=== PATIENT | male | born 1965 | race Caucasian/White ===

== ENCOUNTER 2021-02-19 12:04 | Observation (INO) | payer SELFPAY ==
[2021-02-19] VITALS (10 sets, daily range): BP systolic 88–116; BP diastolic 55–82; PULSE 78–97; RESP 14–24; TEMP 36.2–37.3; O2SAT 93–99; BMI 30.4
[2021-02-19 12:20] LABS: Add Manual Diff / Slide Review NO; Basophils Absolute Auto 100 /uL (0-100); Basophils Percent Auto 0.7 % (0-2); Eosinophils Absolute Auto 100 /uL (0-450); Eosinophils Percent Auto 0.4 % (2-4); Hematocrit 43.6 % (41-53); Hemoglobin 14.8 g/dL (13.5-17.5); Lymphocytes Absolute Auto 1500 /uL (1100-4500); Lymphocytes Percent Auto 10.7 % (25-40); Mean Corpuscular Hemoglobin 31.1 PG (26-34); Mean Corpuscular Volume 91.4 fL (80-100); Monocytes Absolute Auto 1500 /uL (0-900); Neutrophils Absolute Auto 10600 /uL (1500-7000); Neutrophils Percent Auto 77.2 % (50-75); Platelet Count 329 X10^3/uL (150-400); Red Blood Cell Count 4.77 X10^6/uL (4.5-5.9); Red Cell Distribution Width 13.5 % (11.6-14.8); White Blood Cell Count 13.7 X10^3/uL (4.5-11.0)
--- NOTE | 2021-02-19 12:30 | PC.NURSE ---
NS IVF infusing from medics. 300ml infused in field.
[2021-02-19 12:32] LABS: Alanine Aminotransferase 34 IU/L (<50); Albumin 4.8 g/dL (3.5-5.0); Albumin Globulin Ratio 1.1 (1.0-2.8); Alkaline Phosphatase 137 U/L (38-126); Aspartate Aminotransferase 32 IU/L (17-59); BUN Creatinine Ratio 9.5 (6-22); Bilirubin Total 1.2 mg/dL (0.2-1.3); Blood Urea Nitrogen 47 mg/dL (9-20); Calcium 9.9 mg/dL (8.4-10.2); Carbon Dioxide 19 mmol/L (22-32); Chloride 97 mmol/L (98-107); Estimated Glomerular Filt Rate 12.2 mL/min (>60); Ethanol (ETOH) < 10 mg/dL; Globulin 4.2 g/dL (1.7-4.1); Glucose 119 mg/dL (70-100); HEMOLYSIS < 15 (0-50); Lipase 78 U/L (23-300); Potassium 3.7 mmol/L (3.4-5.1); Sodium 135 mmol/L (137-145)
--- NOTE | 2021-02-19 13:16 | ED.GENADULT ---
HPI - General Adult General Chief complaint: Toxicology Problem Stated complaint: ETOH withdrawal Time Seen by Provider: 02/19/21 12:15 Source: patient Mode of arrival: EMS Limitations: no limitations History of Present Illness HPI narrative: Patient is a 55-year-old male here for evaluation of dizziness, fatigue, not feeling well. Patient does have a significant alcohol history. States he quit drinking 3 days ago. He was at his job today picking up some tools in order to take to a new job when he started to not feel very well. It was the coworkers at this job that called EMS. When EMS arrived they found that the patient was ?orthostatic ?patient states that he did have some vomiting a couple days ago and also had diarrhea couple days ago but nothing currently. He does state that he has had a decreased oral intake over the past couple days. Has had some shaking. Has had some anxiety but he feels like that has improved. States that he has never withdrawn from alcohol before but does state that he has had ?seizures ?in the past for an unknown reason. He is not on any anti seizure medications. He has some generalized abdominal tenderness. A couple days ago had some black colored stools but that has resolved. Has been taking Pepto-Bismol because of abdominal tenderness. No vomiting. No blood in his vomitus. No fevers. Related Data Home Medications Medication Instructions Recorded Confirmed atorvastatin 40 mg PO DAILY 02/19/21 02/19/21 lisinopril 10 mg PO DAILY 02/19/21 02/19/21 Allergies Allergy/AdvReac Type Severity Reaction Status Date / Time No Known Drug Allergies Allergy Verified 02/19/21 12:29 Review of Systems Constitutional Constitutional: Reports fatigue, Denies fever(s) and Reports malaise ENT Ears, Nose, Mouth, and Throat: Reports dizziness and Reports disequilibrium Cardiovascular Cardiovascular: Denies chest pain and Denies dyspnea Respiratory Respiratory: Denies dyspnea Gastrointestinal Gastrointestinal: Reports abdominal pain, Reports melena (A couple days ago), Reports diarrhea (A couple days ago), Denies nausea and Reports vomiting (A couple days ago) Genitourinary Genitourinary: Denies dysuria Genitourinary: Denies dysuria Musculoskeletal Musculoskeletal: Denies arthralgias and Denies myalgias Integumentary/Breasts Skin/Breast: Denies rash Neurologic Neurologic: Reports dizziness and Reports disequilibrium Psychiatric Psychiatric: Reports anxiety Endocrine Endocrine: Reports fatigue Hematologic/Lymphatic On Anticoagulants: No Allergic/Immunologic Allergic/Immunologic: Reports system reviewed and no additional complaints, except as documented Patient History Medical History Hyperlipidemia Hypertension Social History household members: none Smoking Status: Current every day smoker alcohol intake: current Smoking Status: Current every day smoker Alcohol type: beer Substance Use Type: marijuana Exam Initial Vital Signs Initial Vital Signs: Vital Signs Pulse Rate 97 H 02/19/21 12:15 Respiratory Rate 24 02/19/21 12:15 Pulse Oximetry 93 02/19/21 12:15 Const General: cooperative and disheveled Limitations: mental status not altered HENMT Head: normal to inspection and normocephalic Resp Effort & Inspection: normal respiratory effort Auscultation: clear to auscultation bilaterally Cardio Rate: regular rate Rhythm: regular rhythm GI Inspection: non-distended Palpation: soft Rectal Exam: visual inspection normal and heme negative stool Skin Lesions: no lesions Rashes: no rashes Neuro General: patient alert and patient awake Cognition: normal cognition Speech: speech normal Extrem General: capillary refill normal Psych Appearance: grossly normal and well kempt Scores GCS [place] coma scale eye opening: Spontaneous K[place] coma scale verbal response: Orientated K[place] coma scale motor response: Obey commands [place] coma scale total score: 15 Course Orders Ordered: ED Orders 02/19/21 12:00 Complete Blood Count AUTO DIFF Stat Comprehensive Metabolic Panel Stat Ethanol (ETOH) Stat Lipase Stat 02/19/21 17:40 Urinalysis and Microscopic Stat Acetaminophen (Acetaminophen 325 Mg Tablet) 650 mg PO Q6HR PRN PRN Reason: Fever/Mild Pain (1-3) Heparin Sodium (Porcine) (Heparin 5,000 Unit/Ml Vial) 5,000 unit SUBCUT BID JEAN Sodium Chloride (Normal Saline 0.9%) 1,000 mls @ 150 mls/hr IV CONT JEAN Last Admin: 02/19/21 18:13 Dose: 150 mls/hr Documented by: FACUNDO Naloxone HCl (Naloxone 0.4 Mg/Ml Vial) 0.2 mg IV Q2MIN PRN PRN Reason: Opiate Reversal Ondansetron HCl (Ondansetron 4 Mg/2 Ml Inj) 4 mg IV Q4HR PRN PRN Reason: Nausea And Vomiting Discontinued Medications Sodium Chloride (Normal Saline 0.9%) 1,000 mls @ 1,000 mls/hr IV BOLUS ONE Stop: 02/19/21 13:14 Last Admin: 02/19/21 12:29 Dose: Not Given Documented by: GALE Sodium Chloride (Normal Saline 0.9%) 1,000 mls @ 1,000 mls/hr IV BOLUS ONE Stop: 02/19/21 16:27 Last Admin: 02/19/21 16:57 Dose: 1,000 mls/hr Documented by: FACUNDO Vital Signs Vital signs: Vital Signs - 8 hr 02/19/21 12:15 02/19/21 12:16 02/19/21 12:28 Temperature 99.1 F Pulse Rate 97 H Pulse Rate [Orthostatic Lying] 82 Pulse Rate [Orthostatic Sitting] 87 Pulse Rate [Orthostatic Standing] 95 H Respiratory Rate 24 Blood Pressure Blood Pressure [Orthostatic Lying] 109/63 Blood Pressure [Orthostatic Sitting] 111/75 Blood Pressure [Orthostatic Standing] 88/55 L Pulse Oximetry 93 02/19/21 12:30 02/19/21 13:00 02/19/21 13:30 Temperature Pulse Rate 78 78 79 Pulse Rate [Orthostatic Lying] Pulse Rate [Orthostatic Sitting] Pulse Rate [Orthostatic Standing] Respiratory Rate 18 19 21 Blood Pressure 90/60 100/58 L 107/63 Blood Pressure [Orthostatic Lying] Blood Pressure [Orthostatic Sitting] Blood Pressure [Orthostatic Standing] Pulse Oximetry 93 97 97 Medical Decision Making Lab Data Lab results reviewed: Yes I reviewed the patient's lab results. Result diagrams: 02/19/21 12:00 02/19/21 12:00 Labs: Lab Results 02/19/21 02/19/21 Range/Units 12:00 12:00 WBC 13.7 H (4.5-11.0) X10^3/uL RBC 4.77 (4.5-5.9) X10^6/uL Hgb 14.8 (13.5-17.5) g/dL Hct 43.6 (41-53) % MCV 91.4 (80-100) fL MCH 31.1 (26-34) PG MCHC 34.0 (30-36) % RDW 13.5 (11.6-14.8) % Plt Count 329 (150-400) X10^3/uL Neut % (Auto) 77.2 H (50-75) % Lymph % (Auto) 10.7 L (25-40) % [place] % (Auto) 11.0 (3-14) % Eos % (Auto) 0.4 L (2-4) % Baso % (Auto) 0.7 (0-2) % Neut # (Auto) 56606 H (7188-4823) /uL Lymph # (Auto) 1500 (8119-3615) /uL [place] # (Auto) 1500 H (0-900) /uL Eos # (Auto) 100 (0-450) /uL Baso # (Auto) 100 (0-100) /uL Sodium 135 L (137-145) mmol/L Potassium 3.7 (3.4-5.1) mmol/L Chloride 97 L (98-107) mmol/L Carbon Dioxide 19 L (22-32) mmol/L BUN 47 H (9-20) mg/dL Creatinine 4.94 H (0.66-1.25) mg/dL Estimated GFR 12.2 L (>60) mL/min BUN/Creatinine Ratio 9.5 (6-22) Glucose 119 H (70-100) mg/dL Calcium 9.9 (8.4-10.2) mg/dL Total Bilirubin 1.2 (0.2-1.3) mg/dL AST 32 (17-59) IU/L ALT 34 (<50) IU/L Alkaline Phosphatase 137 H (38-126) U/L Total Protein 9.0 H (6.3-8.2) g/dL Albumin 4.8 (3.5-5.0) g/dL Globulin 4.2 H (1.7-4.1) g/dL Albumin/Globulin Ratio 1.1 (1.0-2.8) Lipase 78 (23-300) U/L Ethyl Alcohol < 10 ( - 10) mg/dL MDM Narrative Medical decision making narrative: Patient is somewhat anxious but he states that he feels like his anxiety is better than what it was earlier. He does have a leukocytosis. He was orthostatic here in the ER. He also has a elevation in his creatinine. We have no prior to compare to. His potassium is unremarkable. There is no current indication for emergent dialysis. I do suspect that this is pre renal. He was given fluids. Discussed the case with with Internal Medicine who will admit for further evaluation treatment. Discussed the admission with the patient he expressed understanding and agreement as well. Discharge Plan Departure Patient Disposition: Home Clinical Impression: Acute kidney injury
--- NOTE | 2021-02-19 14:59 | PC.NURSE ---
Patient arrived to room 214 from ER, oriented to room and call light. Call light placed within reach, and discussed fall risk precautions. Patient agrees to call for assistance and not to get up alone. No COVID was sent from ER, placed on special droplet precautions per protocol until results received. Patient sitting up in bed, states he is hungry after not eating for 3 days.
--- NOTE | 2021-02-19 15:31 | DI.US.S_ITS ---
PROCEDURE: US RENAL COMPLETE INDICATIONS: RENAL FAILURE TECHNIQUE: Real-time scanning was performed of the kidneys and bladder, with image documentation. COMPARISON: None. FINDINGS: Kidneys: Kidneys are normal in size. Right kidney measures 11.1 cm long; left kidney measures 12.1 cm long. Right renal cortical thickness is 1.7 cm; left renal cortical thickness is 2.0 cm. Renal cortical echotexture is normal. No hydronephrosis or nephrolithiasis. No suspicious solid mass lesions. Bladder: Pre-void bladder volume is 469 mL. Post-void residual is 130 mL. Pre-void images demonstrate no intraluminal masses or stones. A right ureteral jet is present. No left ureteral jet is seen. Miscellaneous: No free pelvic fluid. IMPRESSION: 1. No hydronephrosis. 2. Moderate postvoid residual in the urinary bladder. Dictated by: Afshin Diop M.D. on 02/19/2021 at 18:21 Approved by: Afshin Diop M.D. on 02/19/2021 at 18:22
--- NOTE | 2021-02-19 16:14 | PM.HP.1 ---
History of Present Illness History of Present Illness Date Patient Seen: 02/19/21 Time Patient Seen: 15:00 Date of Onset of Symptoms: 02/17/21 Chief complaint: ETOH withdrawal Narrative: Patient is a 55-year-old male with history of hypertension, hyperlipidemia, alcohol dependency presents to the emergency department with 2 or 3 day history of feeling lightheaded, dizzy and weak associated with vomiting and diarrhea. Patient History Family & Social History Safety & Behavioral: Feels Safe in Current Yes Environment Been Physically Hurt or No Threatened By a Person Suicidal Ideation Description None Tobacco & Substance use: Smoking Status Current every day smoker Substance Use Type marijuana Meds Home Medications and Allergies Allergies Allergy/AdvReac Type Severity Reaction Status Date / Time No Known Drug Allergies Allergy Verified 02/19/21 12:29 Exam Vital Signs (past 8 hours): - 02/19/21 12:15 02/19/21 12:16 02/19/21 12:28 Temperature 99.1 F Pulse Rate 97 H Pulse Rate [Orthostatic Lying] 82 Pulse Rate [Orthostatic Sitting] 87 Pulse Rate [Orthostatic Standing] 95 H Respiratory Rate 24 Blood Pressure Blood Pressure [Orthostatic Lying] 109/63 Blood Pressure [Orthostatic Sitting] 111/75 Blood Pressure [Orthostatic Standing] 88/55 L Pulse Oximetry 93 02/19/21 12:30 02/19/21 13:00 02/19/21 13:30 Temperature Pulse Rate 78 78 79 Pulse Rate [Orthostatic Lying] Pulse Rate [Orthostatic Sitting] Pulse Rate [Orthostatic Standing] Respiratory Rate 18 19 21 Blood Pressure 90/60 100/58 L 107/63 Blood Pressure [Orthostatic Lying] Blood Pressure [Orthostatic Sitting] Blood Pressure [Orthostatic Standing] Pulse Oximetry 93 97 97 02/19/21 14:00 02/19/21 14:23 Temperature 97.1 F L Pulse Rate 78 85 Pulse Rate [Orthostatic Lying] Pulse Rate [Orthostatic Sitting] Pulse Rate [Orthostatic Standing] Respiratory Rate 20 16 Blood Pressure 106/60 116/82 Blood Pressure [Orthostatic Lying] Blood Pressure [Orthostatic Sitting] Blood Pressure [Orthostatic Standing] Pulse Oximetry 97 95 Objective Labs Result Diagrams: 02/19/21 12:00 02/19/21 12:00 Labs: Laboratory Results - last 24 hr 02/19/21 02/19/21 12:00 12:00 WBC 13.7 H RBC 4.77 Hgb 14.8 Hct 43.6 MCV 91.4 MCH 31.1 MCHC 34.0 RDW 13.5 Plt Count 329 Neut % (Auto) 77.2 H Lymph % (Auto) 10.7 L [place] % (Auto) 11.0 Eos % (Auto) 0.4 L Baso % (Auto) 0.7 Neut # (Auto) 86114 H Lymph # (Auto) 1500 [place] # (Auto) 1500 H Eos # (Auto) 100 Baso # (Auto) 100 Sodium 135 L Potassium 3.7 Chloride 97 L Carbon Dioxide 19 L BUN 47 H Creatinine 4.94 H Estimated GFR 12.2 L BUN/Creatinine Ratio 9.5 Glucose 119 H Calcium 9.9 Total Bilirubin 1.2 AST 32 ALT 34 Alkaline Phosphatase 137 H Total Protein 9.0 H Albumin 4.8 Globulin 4.2 H Albumin/Globulin Ratio 1.1 Lipase 78 Ethyl Alcohol < 10
--- NOTE | 2021-02-19 16:41 | PM.HP.1 ---
History of Present Illness History of Present Illness Date Patient Seen: 02/19/21 Time Patient Seen: 15:00 Date of Onset of Symptoms: 02/17/21 Chief complaint: ETOH withdrawal Narrative: Patient is a 55-year-old male with history of hypertension, hyperlipidemia, alcohol dependency, anxiety disorder who presented with complaints of lightheadedness, dizziness, weakness and near-syncope. He quit drinking 3 days ago. He started having vomiting and watery diarrhea the next day after quitting alcohol use. Today he was picking up his tools at work and became near syncopal and someone there called EMS. Patient was orthostatic in the ED with supine BP 109/63 and standing BP 88/55. He takes lisinopril for blood pressure control and atorvastatin for cholesterol. His laboratory values were concerning for acute renal failure with BUN 47, creatinine 4.94 EGFR 12.2. Patient is not aware of any past history of chronic kidney disease and no other lab values are available in our system. Patient denies coffee-ground emesis or melena with the diarrhea. Family history negative for kidney disease. Social history: Alcohol use and smoking Patient History Medical History (Updated 02/19/21 @ 17:02 by Toñito Arredondo MD) Hyperlipidemia Hypertension Family & Social History Safety & Behavioral: Feels Safe in Current Yes Environment Been Physically Hurt or No Threatened By a Person Suicidal Ideation Description None Tobacco & Substance use: Smoking Status Current every day smoker Substance Use Type marijuana Meds Home Medications and Allergies Allergies Allergy/AdvReac Type Severity Reaction Status Date / Time No Known Drug Allergies Allergy Verified 02/19/21 12:29 Review of Systems Review of Systems ROS: Yes All systems reviewed with the patient and are negative except as otherwise documented Exam Vital Signs (past 8 hours): - 02/19/21 12:15 02/19/21 12:16 02/19/21 12:28 Temperature 99.1 F Pulse Rate 97 H Pulse Rate [Orthostatic Lying] 82 Pulse Rate [Orthostatic Sitting] 87 Pulse Rate [Orthostatic Standing] 95 H Respiratory Rate 24 Blood Pressure Blood Pressure [Orthostatic Lying] 109/63 Blood Pressure [Orthostatic Sitting] 111/75 Blood Pressure [Orthostatic Standing] 88/55 L Pulse Oximetry 93 02/19/21 12:30 02/19/21 13:00 02/19/21 13:30 Temperature Pulse Rate 78 78 79 Pulse Rate [Orthostatic Lying] Pulse Rate [Orthostatic Sitting] Pulse Rate [Orthostatic Standing] Respiratory Rate 18 19 21 Blood Pressure 90/60 100/58 L 107/63 Blood Pressure [Orthostatic Lying] Blood Pressure [Orthostatic Sitting] Blood Pressure [Orthostatic Standing] Pulse Oximetry 93 97 97 02/19/21 14:00 02/19/21 14:23 Temperature 97.1 F L Pulse Rate 78 85 Pulse Rate [Orthostatic Lying] Pulse Rate [Orthostatic Sitting] Pulse Rate [Orthostatic Standing] Respiratory Rate 20 16 Blood Pressure 106/60 116/82 Blood Pressure [Orthostatic Lying] Blood Pressure [Orthostatic Sitting] Blood Pressure [Orthostatic Standing] Pulse Oximetry 97 95 Narrative Exam Narrative: General: Alert and cooperative male HEENT: Anicteric, pupils equal and reactive, EOMI Neck: No lymphadenopathy Lungs: Clear to auscultation Heart: Normal S1 and S2, regular rate and rhythm, no murmur Abdomen: Soft, nontender, no HSM Extremities no edema Neurological: A and O x3, affect normal, speech normal, not tremulous, no focal weakness Objective Labs Result Diagrams: 02/19/21 12:00 02/19/21 12:00 Labs: Laboratory Results - last 24 hr 02/19/21 02/19/21 12:00 12:00 WBC 13.7 H RBC 4.77 Hgb 14.8 Hct 43.6 MCV 91.4 MCH 31.1 MCHC 34.0 RDW 13.5 Plt Count 329 Neut % (Auto) 77.2 H Lymph % (Auto) 10.7 L [place] % (Auto) 11.0 Eos % (Auto) 0.4 L Baso % (Auto) 0.7 Neut # (Auto) 47041 H Lymph # (Auto) 1500 [place] # (Auto) 1500 H Eos # (Auto) 100 Baso # (Auto) 100 Sodium 135 L Potassium 3.7 Chloride 97 L Carbon Dioxide 19 L BUN 47 H Creatinine 4.94 H Estimated GFR 12.2 L BUN/Creatinine Ratio 9.5 Glucose 119 H Calcium 9.9 Total Bilirubin 1.2 AST 32 ALT 34 Alkaline Phosphatase 137 H Total Protein 9.0 H Albumin 4.8 Globulin 4.2 H Albumin/Globulin Ratio 1.1 Lipase 78 Ethyl Alcohol < 10 Assessment & Plan Assessment & Plan narrative: 1. Acute kidney injury -this is likely prerenal versus ATN secondary to vomiting and diarrhea associated with alcohol withdrawal -patient is orthostatic indicating volume depletion, serum potassium normal, he has non-anion gap acidosis associated with dehydration and renal failure -provide hydration: 2 L NS bolus then 150 cc/hour -hold lisinopril -renal ultrasound -check renal labs in a.m. 2. Acute alcohol withdrawal -patient's main withdrawal symptoms at this time seem to be vomiting and diarrhea, does not have past history of acute withdrawal -IV Zofran as needed -diet as tolerated 3. Hypertension and hyperlipidemia -hold lisinopril and atorvastatin Admit status: Obs DVT prophylaxis: Subcu heparin
[2021-02-19] MEDS: SODIUM CHLORIDE 0.9% 1,000 ML 1000 ML IV (16:57)
[2021-02-19 17:49] LABS: COVID19 - ADMIT (NP swab/PCR) Negative (Negative)
[2021-02-19] MEDS: SODIUM CHLORIDE 0.9% 1,000 ML 150 ML IV (18:13)
[2021-02-19 18:17] LABS: RBC Urine None Seen (0-5/HPF)
[2021-02-19 18:20] LABS: Appearance Urine UA SL CLOUDY; Bilirubin Urine UA 1+ (NEGATIVE); Color Urine UA YELLOW; Glucose Urine UA NEGATIVE (Negative); Ketones Urine UA TRACE (NEGATIVE); Leukocyte Esterase Urine UA 1+ (NEGATIVE); Nitrite Urine UA NEGATIVE (Negative); Occult Blood Urine UA NEGATIVE (Negative); Protein Urine UA 1+ (Negative); Specific Gravity Urine UA 1.025 (1.000-1.035); Urobilinogen Urine UA 0.2 E.U./dL (0.2)
[2021-02-19 18:30] LABS: Amorphous Sediment Urine 1+; Bacteria Urine Moderate (10-30); Granular Casts Urine 1-5/LPF; Hyaline Casts Urine 1-5/LPF; Ictotest Urine Negative (Negative); Squamous Epithelial Cell Urine 1-5 /HPF (0-5/HPF); WBC Urine 10-30/HPF (0-5/HPF)
[2021-02-19 18:31] LABS: Culture Indicated Urine Specimen Cultured; Mucus Urine 1+ (Negative)
[2021-02-19] MEDS: HEPARIN 5,000 UNIT/ML VIAL 5000 UNIT SUBCUT (21:27)
[2021-02-20] VITALS (8 sets, daily range): BP systolic 101–127; BP diastolic 47–72; PULSE 69–85; RESP 16; TEMP 36–37.3; O2SAT 96–97
[2021-02-20] MEDS: SODIUM CHLORIDE 0.9% 1,000 ML 150 ML IV (01:50)
[2021-02-20 05:31] LABS: BUN Creatinine Ratio 23.6 (6-22); Blood Urea Nitrogen 35 mg/dL (9-20); Calcium 8.5 mg/dL (8.4-10.2); Carbon Dioxide 20 mmol/L (22-32); Chloride 110 mmol/L (98-107); Glucose 101 mg/dL (70-100); HEMOLYSIS < 15 (0-50); Potassium 4.3 mmol/L (3.4-5.1); Sodium 138 mmol/L (137-145)
[2021-02-20 05:42] LABS: Add Manual Diff / Slide Review NO; Basophils Absolute Auto 100 /uL (0-100); Eosinophils Absolute Auto 100 /uL (0-450); Eosinophils Percent Auto 1.1 % (2-4); Hematocrit 37.4 % (41-53); Hemoglobin 12.7 g/dL (13.5-17.5); Lymphocytes Absolute Auto 1200 /uL (1100-4500); Lymphocytes Percent Auto 14.6 % (25-40); Mean Corpuscular Hemoglobin 31.4 PG (26-34); Mean Corpuscular Volume 92.3 fL (80-100); Monocytes Absolute Auto 1100 /uL (0-900); Monocytes Percent Auto 13.3 % (3-14); Neutrophils Absolute Auto 5600 /uL (1500-7000); Platelet Count 235 X10^3/uL (150-400); Red Blood Cell Count 4.05 X10^6/uL (4.5-5.9); Red Cell Distribution Width 13.3 % (11.6-14.8)
[2021-02-20] MEDS: HEPARIN 5,000 UNIT/ML VIAL 5000 UNIT SUBCUT (09:08)
[2021-02-20] MEDS: CIPROFLOXACIN 250 MG TABLET 500 MG PO (11:25)
--- NOTE | 2021-02-20 12:02 | PC.NURSE ---
Patient given discharge instructions regarding medication, s/s of worsening condition and alcohol use and dependence. Pharmacy able to provide instructions regarding prescribed antibiotic. Patient verbalized understanding. Tele discontinued and IV removed, patient tolerated. Patient denies having items in [facility] safe, wallet retrieved from bedside table. Patient discharged via wheelchair with aide assist.
--- NOTE | 2021-02-20 13:12 | CM.SWNOTE ---
RECORDS CUSTODIAN Note Patient is a 55 yo male, resident of [place], admitted for symptoms of ETOH w/d and discharged this morning . Patient is currently self pay, patient given information about [employer] and provided robe care ppk per notes from admitting team Met w/patient before his DC, introduced RECORDS CUSTODIAN role. Patient eager to DC the hospital and states he has stable housing in [place], lives in an apt. Patient confirms he quit drinking 3 days ago and plans to remain sober upon DC. Patient has been getting drunk nightly w/about 6-7 large cans of beer. Patient admits to long standing h/o ETOH abuse, since age 14-13yo, last period of sobriety was sometime in my thirties. Patient states over and over that my drinking has never been a problem for me so I never quit. 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 Patient has never been , no children, and currently w/no medical insurance. Patient appears to lack insight into the severity of his addiction and the negative effect it has on his life. Patient denies needs from this RECORDS CUSTODIAN today and says when I want to stop I stop cold turkey Updated RN Milagros. Pao Garner, BRAYAN
--- NOTE | 2021-02-20 15:13 | PM.DS.1 ---
History of Present Illness History of Present Illness Chief complaint: ETOH withdrawal Narrative: Patient is a 55-year-old male with history of hypertension, hyperlipidemia, alcohol dependency, anxiety disorder who presented with complaints of lightheadedness, dizziness, weakness and near-syncope. He quit drinking 3 days ago. He started having vomiting and watery diarrhea the next day after quitting alcohol use. Today he was picking up his tools at work and became near syncopal and someone there called EMS. Patient was orthostatic in the ED with supine BP 109/63 and standing BP 88/55. He takes lisinopril for blood pressure control and atorvastatin for cholesterol. His laboratory values were concerning for acute renal failure with BUN 47, creatinine 4.94 EGFR 12.2. Patient is not aware of any past history of chronic kidney disease and no other lab values are available in our system. Patient denies coffee-ground emesis or melena with the diarrhea. Family history negative for kidney disease. Social history: Alcohol use and smoking Discharge Providers Provider Date of admission: 02/19/21 13:40 Discharge Date: 02/20/21 Consults: 02/19/21 18:30 Consult to Respiratory Therapy Evaluate & Treat Comment: Physician Instructions: Evaluate and treat Discharge provider: Toñito Arredondo MD Summary Hospital Course Discharge Diagnosis: 1. Acute kidney injury, prerenal 2. ETOH dependency with acute withdrawal 3. Urinary tract infection 4. Likely mild chronic urinary retention due to BPH Patient admitted with symptoms of acute severe dehydration. He had been vomiting and having diarrhea since quit drinking. He was orthostatic and his creatinine was 4.94. He was provided IV hydration with substantial improvement of presenting symptoms. His lisinopril was held. His creatinine came down to 1.48. His renal ultrasound showed normal kidneys without hydronephrosis. He did have small amount of postvoid urinary retention approximately 150 cc in the bladder. He denies symptoms of BPH. There was moderate bacteria and leukocytes on urinalysis. Urine culture from admission is pending. He is not having fever or dysuria. However, urinary bacteria in male his age is somewhat unusual and he was started on ciprofloxacin to treat simple UTI. Patient did not have any other symptoms of alcohol withdrawal. He was provided with resources for alcohol cessation. Status at Discharge Cognitive/behavioral status at discharge: oriented Functional status at discharge: independent ambulation Overall status at discharge: patient is back to baseline Time Spent with Patient Time spent: Greater than 30 minutes Exam Vital Signs (past 8 hours): - 02/20/21 08:00 02/20/21 08:16 02/20/21 09:00 Temperature 96.8 F L Pulse Rate 74 Pulse Rate [Orthostatic Lying] 78 Pulse Rate [Orthostatic Sitting] 78 Pulse Rate [Orthostatic Standing] 85 Respiratory Rate 16 Blood Pressure 101/47 L Blood Pressure [Orthostatic Lying] 103/54 L Blood Pressure [Orthostatic Sitting] 117/72 Blood Pressure [Orthostatic Standing] 121/71 Pulse Oximetry 97 96 02/20/21 09:15 Temperature Pulse Rate 76 Pulse Rate [Orthostatic Lying] Pulse Rate [Orthostatic Sitting] Pulse Rate [Orthostatic Standing] Respiratory Rate 16 Blood Pressure Blood Pressure [Orthostatic Lying] Blood Pressure [Orthostatic Sitting] Blood Pressure [Orthostatic Standing] Pulse Oximetry 97 Oxygen Delivery Method Room Air Oxygen Flow Rate 0 Objective Labs Result Diagrams: 02/20/21 05:05 02/20/21 05:05 Labs: Laboratory Results - last 24 hr 02/19/21 02/19/21 02/20/21 14:50 17:40 05:05 WBC 8.0 RBC 4.05 L Hgb 12.7 L Hct 37.4 L MCV 92.3 MCH 31.4 MCHC 34.0 RDW 13.3 Plt Count 235 Neut % (Auto) 70.0 Lymph % (Auto) 14.6 L [place] % (Auto) 13.3 Eos % (Auto) 1.1 L Baso % (Auto) 1.0 Neut # (Auto) 5600 Lymph # (Auto) 1200 [place] # (Auto) 1100 H Eos # (Auto) 100 Baso # (Auto) 100 Sodium Potassium Chloride Carbon Dioxide BUN Creatinine Estimated GFR BUN/Creatinine Ratio Glucose Calcium Urine Color Yellow Urine Appearance Sl cloudy Urine pH 5.0 Ur Specific [place] 1.025 Urine Protein 1+ H Urine Glucose (UA) Negative Urine Ketones Trace H Urine Occult Blood Negative Urine Nitrate Negative Urine Bilirubin 1+ H Ur Bilirubin Confirm Negative Urine Urobilinogen 0.2 Ur Leukocyte Esterase 1+ H Urine RBC None seen Urine WBC 10-30/hpf H Ur Squamous Epith Cells 1-5 /hpf Amorphous Sediment 1+ Urine Bacteria Moderate (10-30) H Hyaline Casts 1-5/lpf Granular Casts 1-5/lpf Urine Mucus 1+ H Ur Culture Indicated? Specimen cultured SARS-CoV-2 (PCR) Negative 02/20/21 05:05 WBC RBC Hgb Hct MCV MCH MCHC RDW Plt Count Neut % (Auto) Lymph % (Auto) [place] % (Auto) Eos % (Auto) Baso % (Auto) Neut # (Auto) Lymph # (Auto) [place] # (Auto) Eos # (Auto) Baso # (Auto) Sodium 138 Potassium 4.3 Chloride 110 H Carbon Dioxide 20 L BUN 35 H Creatinine 1.48 H Estimated GFR 49.0 L BUN/Creatinine Ratio 23.6 H Glucose 101 H Calcium 8.5 Urine Color Urine Appearance Urine pH Ur Specific [place] Urine Protein Urine Glucose (UA) Urine Ketones Urine Occult Blood Urine Nitrate Urine Bilirubin Ur Bilirubin Confirm Urine Urobilinogen Ur Leukocyte Esterase Urine RBC Urine WBC Ur Squamous Epith Cells Amorphous Sediment Urine Bacteria Hyaline Casts Granular Casts Urine Mucus Ur Culture Indicated? SARS-CoV-2 (PCR) PFSH Medical History Hyperlipidemia Hypertension Social History household members: none Smoking Status: Current every day smoker alcohol intake: current Discharge Plan Discharge Plan Patient Disposition: Home Provider Discharge Comment: You were treated for kidney failure due to severe dehydration. Kidney ultrasound looked okay except showed you are retaining some urine after emptying your bladder (could be from enlarged prostate). We also found bacteria in the urine and sending you home on oral antibiotic. Please follow up with provider on urine culture results. You may take Imodium as needed for diarrhea. Please maintain alcohol cessation - alcohol quitting resources provided. You may resume lisinopril when diarrhea resolves. Monitor home blood pressures. You may resume atorvastatin. Please quit smoking. Nursing Discharge Comment: d/c after CM meets with patient to provide alcohol dependency resources Discharge orders & Medications Prescriptions: New ciprofloxacin HCl [Cipro] 500 mg tablet 500 mg PO BID Qty: 14 RF: 0 Continued atorvastatin 40 mg tablet 40 mg PO DAILY RF: 0 lisinopril 10 mg tablet 10 mg PO DAILY RF: 0 Medication counseling provided by Pharmacist: Yes Pharmacist Comment: Gave patient printed copy of patient education for ciprofloxacin Follow up/Referrals: Sabas Garcia MD [Non-Staff] - 3-5 Days Discharge Health Status Multidrug resistant organism: No MDRO Diet/Activity/Treatments Diet: Diet as Tolerated Visit Report/Discharge Packet Instructions: DI for Heart Failure, DI for Alcohol Use Disorder, DI for Drug or Alcohol Withdrawal Discharge Data Attending Provider: Toñito Arredondo
== END 2021-02-20 12:00 | disposition home or self-care (01) ==
LOC: ED 13:27 → AC 13:59
PROVIDERS: Admitting Provider Internal Medicine; Emergency Provider Emergency Medicine; Referring Provider Emergency Medicine; Visit Provider Internal Medicine
DX: N17.9 Acute kidney failure, unspecified (principal); E86.0 Dehydration; N39.0 Urinary tract infection, site not specified; R33.9 Retention of urine, unspecified; F10.239 Alcohol dependence with withdrawal, unspecified; I10 Essential (primary) hypertension; E78.00 Pure hypercholesterolemia, unspecified; F41.9 Anxiety disorder, unspecified; F17.210 Nicotine dependence, cigarettes, uncomplicated; Z20.822 Contact with and (suspected) exposure to COVID-19
CPT/HCPCS: 36415; 76770; 80048; 80053; 80320; 81001; 83690; 85025; 87086; 87635; 94760; 96360; 96361; 96372; 99283; C9803; G0378; J1644

== ENCOUNTER → 2022-08-04 08:39 | Outpatient (CLI) | payer OTHER, SELFPAY ==
[2021-02-19 18:14] VITALS: BMI 30.4
--- NOTE | 2022-08-04 | DI.RAD.S_ITS ---
PROCEDURE: XR HIP W PEL IF DONE LT 2V INDICATIONS: Pain in unspecified hip TECHNIQUE: AP pelvis with lateral view(s) of the left hip(s). COMPARISON: None. FINDINGS: Bones: Moderate bilateral hip DJD. There is joint space narrowing, acetabular roof sclerosis, and osteophytosis. No fractures or dislocations. Pelvic ring appears intact. No suspicious bony lesions. Soft tissues: The visualized bowel gas pattern is normal. No suspicious soft tissue calcifications. IMPRESSION: Moderate bilateral hip DJD. Dictated by: Quan Jean M.D. on 08/04/2022 at 9:32 Approved by: Quan Jean M.D. on 08/04/2022 at 9:33
== END ==
LOC: RAD 08:42
PROVIDERS: Referring Provider Internal Medicine Cardiovascular Disease; Visit Provider Internal Medicine Cardiovascular Disease
DX: M16.0 Bilateral primary osteoarthritis of hip (principal); M25.559 Pain in unspecified hip
CPT/HCPCS: 73502